=== PATIENT | male | born 1945 | race Caucasian/White ===

== ENCOUNTER 2018-08-26 17:59 | Emergency (ER) | payer MEDICARE, SELFPAY ==
[2018-08-26 18:01] VITALS: BP 140/86; PULSE 74; RESP 14; TEMP 36.7; O2SAT 99
--- NOTE | 2018-08-26 18:12 | DI.US.S_ITS ---
PROCEDURE: US PERIPH VENOUS LOW EXTREM LT INDICATIONS: EDEMA POST RECENT VARICOSE VEIN SURGERY TECHNIQUE: Real-time imaging, as well as color and pulse Doppler interrogation, were performed of the lower extremity deep veins from the inguinal ligament to the popliteal fossa. COMPARISON: None. FINDINGS: The common femoral, femoral and popliteal veins are normally compressible, and free of intraluminal thrombus. Color and pulse Doppler demonstrate normal phasic intraluminal flow. There is normal augmentation response to distal compression maneuver. Occlusive thrombus is present within the superior aspect of the greater saphenous vein. IMPRESSION: 1. Occlusive thrombus within the superior aspect of the left greater saphenous vein. 2. No deep vein thrombosis of the left lower extremity. Dictated by: Armida Richard M.D. on 08/26/2018 at 19:19 Approved by: Armida Richard M.D. on 08/26/2018 at 19:21
--- NOTE | 2018-08-26 19:35 | ED.LOWEXIN ---
HPI - Extremity Injury (Lower) <Linda Hare PA-C - Last Filed: 08/26/18 21:33> General Chief Complaint: Extremity Injury, Lower Stated Complaint: Pain left lower leg Time Seen by Provider: 08/26/18 18:15 Source: patient and family Mode of arrival: ambulatory Limitations: no limitations History of Present Illness HPI Narrative: This 72-year-old gentleman comes to ED secondary to concern for blood clot. Last Friday, he had vascular procedure on the left leg, unsure how many veins or which, but did have a large ropy vein extending from his upper medial thigh that was worked on. He is unsure whether he had vein stripping or ablation. He states that sutures were removed on Friday and he had some swelling but seemed to be doing okay. Today, swelling is worse in the leg and he has had some pain in the simental area, less so in the thigh, worse with standing, better with elevation. He denies any chest pain, dyspnea, nausea or other new pain or swelling in the extremities. He does not have any history of blood clot. He has a longstanding history of atrial fibrillation for which he is on full dose aspirin. Related Data Home Medications Medication Instructions Recorded Confirmed CYANOCOBALAMIN (VITAMIN B-12) 1,000 mcg PO Q DAY #0 08/20/10 (Vitamin B-12) magnesium 200 mg PO Q DAY #0 01/24/11 aspirin 325 mg PO QDAY #0 10/06/12 vitamin A 10,000 unit PO #0 10/14/16 Allergies Allergy/AdvReac Type Severity Reaction Status Date / Time No Known Drug Allergies Allergy Verified 08/26/18 18:03 Review of Systems <Linda Hare PA-C - Last Filed: 08/26/18 21:33> Review of Systems ROS Unobtainable: All systems reviewed & are unremarkable except as noted in HPI and below PFS <Linda Hare PA-C - Last Filed: 08/26/18 21:33> Medical History (Updated 08/26/18 @ 21:02 by Linda Hare PA-C) Atrial fibrillation (Chronic) Parkinson's disease (Chronic) Surgical History (Updated 08/26/18 @ 20:08 by Linda Hare PA-C) Status post hernia repair (Resolved) Status post nasal surgery (Resolved) Status post vein stripping (Resolved) Family History (Updated 07/02/16 @ 00:00 by Conversion Provider) Father Mental health problem Grandfather Heart disease Grandmother Heart disease Social History Smoking Status: Former smoker Family History (Updated 07/02/16 @ 00:00 by Conversion Provider) Father Mental health problem Grandfather Heart disease Grandmother Heart disease Social History Smoking Status: Former smoker Exam <Linda Hare PA-C - Last Filed: 08/26/18 21:33> Narrative Exam Narrative: GENERAL APPEARANCE: Patient sitting comfortably, in no distress. NECK/THYROID: Neck supple, no JVD. LUNGS: Clear to auscultation bilaterally. HEART: Irregular rate and rhythm without murmur EXTREMITIES: No cyanosis, left pedal pulse intact, numerous varicosities with moderate bilateral edema, more pronounced on the left. No calf tenderness DERMATOLOGIC: Numerous Steri-Strips on the left anterior lower extremity, widespread mostly yellow ecchymoses, tender around the areas with ecchymoses. NEUROLOGIC: Alert and oriented, normal speech, slow to initiate movement, no tremor noted Initial Vital Signs Initial Vital Signs: Vital Signs Temperature 98.1 F 08/26/18 18:01 Pulse Rate 74 08/26/18 18:01 Respiratory Rate 14 08/26/18 18:01 Blood Pressure 140/86 08/26/18 18:01 Pulse Oximetry 99 08/26/18 18:01 <Blake Oleary DO - Last Filed: 08/27/18 05:48> Initial Vital Signs Initial Vital Signs: Vital Signs Temperature 98.1 F 08/26/18 18:01 Pulse Rate 74 08/26/18 18:01 Respiratory Rate 14 08/26/18 18:01 Blood Pressure 140/86 08/26/18 18:01 Pulse Oximetry 99 08/26/18 18:01 Course <Linda Hare PA-C - Last Filed: 08/26/18 21:33> Additional Information: I spoke with Dr. Renteria, radiologist, who advised this is not a deep clot and depending on patient's procedure may be expected. She was unable to tell for sure how close this was to the femoral junction or see the confluence of the veins well. Patient was not able to tell me what procedure he had. I spoke with [facility] vascular surgeon business transformation analyst Dr. Claudia Millard, who confirmed patient had RFA of GSV and proximal clotting was to be expected. She did advise follow-up and will send a note to patient's primary surgeon. No appearance of cellulitis or very severe swelling today though patient stated more so than on Friday when he followed up. Patient had departed earlier after resident confirmed the procedure he had and clotting to be expected. I did leave a phone message advising this was confirmed and to call business transformation analyst surgeon if noticing worse/more persistent swelling as he may need to be seen on Friday. Return precautions given including return if acutely worsening, or new symptoms such as chest pain or dyspnea, and he and his are agreeable Orders Ordered: ED Orders 08/26/18 18:12 perip venous low extrem lt Stat Vital Signs - 8 hr 08/26/18 18:01 Temperature 98.1 F Pulse Rate 74 Respiratory Rate 14 Blood Pressure 140/86 Pulse Oximetry 99 <Blake Oleary DO - Last Filed: 08/27/18 05:48> Orders Ordered: ED Orders 08/26/18 18:12 US perip venous low extrem lt Stat Vital Signs - 8 hr 08/26/18 18:01 Temperature 98.1 F Pulse Rate 74 Respiratory Rate 14 Blood Pressure 140/86 Pulse Oximetry 99 MDM - Extremity Injury (Lower) <Linda Hare PA-C - Last Filed: 08/26/18 21:33> Imaging Data Venous US: Radiologist's impression: [address] [address] Ultrasound Report Signed Patient: Guy Valadez [facility]#: [id number] : 5Acct:[id number] Age/Sex: 72 / MDate of Service: 08/26/18 Loc: ED Accession Number: [id number] Procedure: US periph venous low extrem lt Ordering Provider: Bridgette Marie D.O. PROCEDURE: US PERIPH VENOUS LOW EXTREM LT INDICATIONS: EDEMA POST RECENT VARICOSE VEIN SURGERY TECHNIQUE: Real-time imaging, as well as color and pulse Doppler interrogation, were performed of the lower extremity deep veins from the inguinal ligament to the popliteal fossa. COMPARISON: None. FINDINGS: The common femoral, femoral and popliteal veins are normally compressible, and free of intraluminal thrombus. Color and pulse Doppler demonstrate normal phasic intraluminal flow. There is normal augmentation response to distal compression maneuver. Occlusive thrombus is present within the superior aspect of the greater saphenous vein. IMPRESSION: 1. Occlusive thrombus within the superior aspect of the left greater saphenous vein. 2. No deep vein thrombosis of the left lower extremity. Dictated by: Armida Richard M.D. on 08/26/2018 at 19:19 Approved by: Armida Richard M.D. on 08/26/2018 at 19:21 Discharge Plan Departure Patient Disposition: Home Clinical Impression: Superficial vein thrombosis Discharge Date/Time: 08/26/18 21:08 Interventions: ED Discharge Assessment Last Done: 08/26/18 21:07 Instructions: DI for Superficial Thrombophlebitis Activity Restrictions/Additional Instructions: Your ultrasound today shows a clot in the left greater saphenous vein. The procedure you had at the [facility], called a radiofrequency ablation, typically would cause this clotting. I was able to speak with a ophthalmology surgical technician and confirm your procedure. You did not have any clot in the deeper veins of your leg. Please continue your usual medicines. Elevate the leg above your heart as much as possible to help with pain and discomfort. As we talked about, you should return if you have any acutely worsening pain or swelling over the weekend or new symptoms such as chest pain or difficulty breathing Prescriptions: No Action CYANOCOBALAMIN (VITAMIN B-12) (Vitamin B-12) 1,000 mcg PO Q DAY Qty: 0 RF: 0 magnesium 200 MG tablet 200 mg PO Q DAY Qty: 0 RF: 0 aspirin 325 MG tablet,delayed release (DR/EC) 325 mg PO QDAY Qty: 0 RF: 0 vitamin A 10,000 UNIT capsule 10,000 unit PO Qty: 0 RF: 0 Referrals: , Vascular Surgery [Other] To Rose MD [Primary Care Provider] - <Blake Oleary DO - Last Filed: 08/27/18 05:48> Cosign ED Attending Cosignature Attestation: I was immediately available in the department for consultation. Documentation has been reviewed. I agree with assessment and plan.
--- NOTE | 2018-08-26 20:09 | ED_ITS ---
HPI - Extremity Injury (Lower) <Linda Hare PA-C - Last Filed: 08/26/18 21:33> General Chief Complaint: Extremity Injury, Lower Stated Complaint: Pain left lower leg Time Seen by Provider: 08/26/18 18:15 Source: patient and family Mode of arrival: ambulatory Limitations: no limitations History of Present Illness HPI Narrative: This 72-year-old gentleman comes to ED secondary to concern for blood clot. Last Friday, he had vascular procedure on the left leg, unsure how many veins or which, but did have a large ropy vein extending from his upper medial thigh that was worked on. He is unsure whether he had vein stripping or ablation. He states that sutures were removed on Friday and he had some swelling but seemed to be doing okay. Today, swelling is worse in the leg and he has had some pain in the simental area, less so in the thigh, worse with standing, better with elevation. He denies any chest pain, dyspnea, nausea or other new pain or swelling in the extremities. He does not have any history of blood clot. He has a longstanding history of atrial fibrillation for which he is on full dose aspirin. Related Data Home Medications Medication Instructions Recorded Confirmed CYANOCOBALAMIN (VITAMIN B-12) 1,000 mcg PO Q DAY #0 08/20/10 (Vitamin B-12) magnesium 200 mg PO Q DAY #0 01/24/11 aspirin 325 mg PO QDAY #0 10/06/12 vitamin A 10,000 unit PO #0 10/14/16 Allergies Allergy/AdvReac Type Severity Reaction Status Date / Time No Known Drug Allergies Allergy Verified 08/26/18 18:03 Review of Systems <Linda Hare PA-C - Last Filed: 08/26/18 21:33> Review of Systems ROS Unobtainable: All systems reviewed & are unremarkable except as noted in HPI and below PFS <Linda Hare PA-C - Last Filed: 08/26/18 21:33> Medical History (Updated 08/26/18 @ 21:02 by Linda Hare PA-C) Atrial fibrillation (Chronic) Parkinson's disease (Chronic) Surgical History (Updated 08/26/18 @ 20:08 by Linda Hare PA-C) Status post hernia repair (Resolved) Status post nasal surgery (Resolved) Status post vein stripping (Resolved) Family History (Updated 07/02/16 @ 00:00 by Conversion Provider) Father Mental health problem Grandfather Heart disease Grandmother Heart disease Social History Smoking Status: Former smoker Family History (Updated 07/02/16 @ 00:00 by Conversion Provider) Father Mental health problem Grandfather Heart disease Grandmother Heart disease Social History Smoking Status: Former smoker Exam <Linda Hare PA-C - Last Filed: 08/26/18 21:33> Narrative Exam Narrative: GENERAL APPEARANCE: Patient sitting comfortably, in no distress. NECK/THYROID: Neck supple, no JVD. LUNGS: Clear to auscultation bilaterally. HEART: Irregular rate and rhythm without murmur EXTREMITIES: No cyanosis, left pedal pulse intact, numerous varicosities with moderate bilateral edema, more pronounced on the left. No calf tenderness DERMATOLOGIC: Numerous Steri-Strips on the left anterior lower extremity, widespread mostly yellow ecchymoses, tender around the areas with ecchymoses. NEUROLOGIC: Alert and oriented, normal speech, slow to initiate movement, no tremor noted Initial Vital Signs Initial Vital Signs: Vital Signs Temperature 98.1 F 08/26/18 18:01 Pulse Rate 74 08/26/18 18:01 Respiratory Rate 14 08/26/18 18:01 Blood Pressure 140/86 08/26/18 18:01 Pulse Oximetry 99 08/26/18 18:01 <Blake Oleary DO - Last Filed: 08/27/18 05:48> Initial Vital Signs Initial Vital Signs: Vital Signs Temperature 98.1 F 08/26/18 18:01 Pulse Rate 74 08/26/18 18:01 Respiratory Rate 14 08/26/18 18:01 Blood Pressure 140/86 08/26/18 18:01 Pulse Oximetry 99 08/26/18 18:01 Course <Linda Hare PA-C - Last Filed: 08/26/18 21:33> Additional Information: I spoke with Dr. Renteria, radiologist, who advised this is not a deep clot and depending on patient's procedure may be expected. She was unable to tell for sure how close this was to the femoral junction or see the confluence of the veins well. Patient was not able to tell me what procedure he had. I spoke with [facility] vascular surgeon renewable energy consultant Dr. Claudia Millard, who confirmed patient had RFA of GSV and proximal clotting was to be expected. She did advise follow-up and will send a note to patient's primary surgeon. No appearance of cellulitis or very severe swelling today though patient stated more so than on Friday when he followed up. Patient had departed earlier after resident confirmed the procedure he had and clotting to be expected. I did leave a phone message advising this was confirmed and to call renewable energy consultant surgeon if noticing worse/more persistent swelling as he may need to be seen on Friday. Return precautions given including return if acutely worsening, or new symptoms such as chest pain or dyspnea, and he and his are agreeable Orders Ordered: ED Orders 08/26/18 18:12 perip venous low extrem lt Stat Vital Signs - 8 hr 08/26/18 18:01 Temperature 98.1 F Pulse Rate 74 Respiratory Rate 14 Blood Pressure 140/86 Pulse Oximetry 99 <Blake Oleary DO - Last Filed: 08/27/18 05:48> Orders Ordered: ED Orders 08/26/18 18:12 US perip venous low extrem lt Stat Vital Signs - 8 hr 08/26/18 18:01 Temperature 98.1 F Pulse Rate 74 Respiratory Rate 14 Blood Pressure 140/86 Pulse Oximetry 99 MDM - Extremity Injury (Lower) <Linda Hare PA-C - Last Filed: 08/26/18 21:33> Imaging Data Venous US: Radiologist's impression: [address] [address] Ultrasound Report Signed Patient: Guy Valadez [facility]#: [id number] : 5Acct:[id number] Age/Sex: 72 / MDate of Service: 08/26/18 Loc: ED Accession Number: [id number] Procedure: US periph venous low extrem lt Ordering Provider: Bridgette Marie D.O. PROCEDURE: US PERIPH VENOUS LOW EXTREM LT INDICATIONS: EDEMA POST RECENT VARICOSE VEIN SURGERY TECHNIQUE: Real-time imaging, as well as color and pulse Doppler interrogation, were performed of the lower extremity deep veins from the inguinal ligament to the popliteal fossa. COMPARISON: None. FINDINGS: The common femoral, femoral and popliteal veins are normally compressible, and free of intraluminal thrombus. Color and pulse Doppler demonstrate normal phasic intraluminal flow. There is normal augmentation response to distal compression maneuver. Occlusive thrombus is present within the superior aspect of the greater saphenous vein. IMPRESSION: 1. Occlusive thrombus within the superior aspect of the left greater saphenous vein. 2. No deep vein thrombosis of the left lower extremity. Dictated by: Armida Richard M.D. on 08/26/2018 at 19:19 Approved by: Armida Richard M.D. on 08/26/2018 at 19:21 Discharge Plan Departure Patient Disposition: Home Clinical Impression: Superficial vein thrombosis Discharge Date/Time: 08/26/18 21:08 Interventions: ED Discharge Assessment Last Done: 08/26/18 21:07 Instructions: DI for Superficial Thrombophlebitis Activity Restrictions/Additional Instructions: Your ultrasound today shows a clot in the left greater saphenous vein. The procedure you had at the [place], called a radiofrequency ablation, typically would cause this clotting. I was able to speak with a surgical clinical reviewer and confirm your procedure. You did not have any clot in the deeper veins of your leg. Please continue your usual medicines. Elevate the leg above your heart as much as possible to help with pain and discomfort. As we talked about, you should return if you have any acutely worsening pain or swelling over the weekend or new symptoms such as chest pain or difficulty breathing Prescriptions: No Action CYANOCOBALAMIN (VITAMIN B-12) (Vitamin B-12) 1,000 mcg PO Q DAY Qty: 0 RF: 0 magnesium 200 MG tablet 200 mg PO Q DAY Qty: 0 RF: 0 aspirin 325 MG tablet,delayed release (DR/EC) 325 mg PO QDAY Qty: 0 RF: 0 vitamin A 10,000 UNIT capsule 10,000 unit PO Qty: 0 RF: 0 Referrals: , Vascular Surgery [Other] To Rose MD [Primary Care Provider] - <Blake Oleary DO - Last Filed: 08/27/18 05:48> Cosign ED Attending Cosignature Attestation: I was immediately available in the department for consultation. Documentation has been reviewed. I agree with assessment and plan.
== END 2018-08-26 21:08 | disposition home or self-care (01) ==
PROVIDERS: Emergency Provider Internal Medicine; PCP Family Medicine
DX: I82.890 Acute embolism and thrombosis of other specified veins (principal)
CPT/HCPCS: 93971; 99282; 99283